=== PATIENT | female | born 1940 | race Caucasian/White ===

== ENCOUNTER → 2016-11-08 | Outpatient (CLI) | payer MEDICARE, OTHER ==
[~2016-11-08] VITALS: Ht 157.5 cm; Wt 66.5 kg
[~2016-11-08] MED LIST: ASPIRIN E.C. 8181 MG PO; BIOTIN 0.3 MG-21 TAB; CALCIUM CARBON650 M2; CALCIUM500 MG PO; CINNAMON500 MG PO; CITRACAL + D CA1 TAB PO; EPA FISH OIL1000 MG PO; ESTRACE2 MG PO; FELDENE20 MG PO; FOSAMAX 70MG TA70 MG PO; K-DUR20 MEQ PO; MULTIPLE VITAMI1 TAB PO; OCUVITE ADULT 51 SGL PO; PHENTERMINE15 MG PO; PREMARIN VAG42.5 GM VG; PRINIVIL5 MG PO; SYNTHROID 0.0.025 MG PO; SYNTHROID0.05 MG/TA PO; VITAMIN C PUR1000 MG PO; VITAMIN C500 MG PO; VITAMIN D32000 I1 PO; VITAMIN D32000 IU PO; VITAMIN E1000 U/CAP PO; WELLBUTRIN SR150 M1 PO; ZESTRIL40 MG PO
[2016-11-08 13:28] VITALS: BP 118/60; PULSE 82
[2016-11-08 13:53] VITALS: BP 118/60; PULSE 82
== END ==
LOC: LIGHT 11:19
DX: E88.81 Metabolic syndrome and other insulin resistance (principal); I10 Essential (primary) hypertension; E66.3 Overweight; Z68.26 Body mass index [BMI] 26.0-26.9, adult; E03.9 Hypothyroidism, unspecified

== ENCOUNTER → 2016-12-06 | Outpatient (CLI) | payer MEDICARE, OTHER ==
[~2016-12-06] VITALS: Ht 157.5 cm; Wt 65.3 kg
[2016-12-06 09:39] VITALS: BP 117/43; PULSE 69
[2016-12-06 09:49] VITALS: BP 117/43; PULSE 69
[2017-01-02 10:30] VITALS: BP 134/55; PULSE 80
== END ==
LOC: LIGHT 09:40
DX: E88.81 Metabolic syndrome and other insulin resistance (principal); I10 Essential (primary) hypertension; E03.8 Other specified hypothyroidism; E66.3 Overweight; Z68.26 Body mass index [BMI] 26.0-26.9, adult

== ENCOUNTER → 2017-01-17 | Outpatient (CLI) | payer MEDICARE, OTHER | LOC: MC.RAD 13:40 | DX: Z12.31 Encounter for screening mammogram for malignant neoplasm of breast (principal) ==

== ENCOUNTER → 2017-01-17 | Outpatient (CLI) | payer MEDICARE, OTHER ==
[~2017-01-17] VITALS: Ht 157.5 cm; Wt 65.1 kg
[2017-01-17 11:10] VITALS: BP 140/84; PULSE 68
== END ==
LOC: LIGHT
DX: E88.81 Metabolic syndrome and other insulin resistance (principal); I10 Essential (primary) hypertension; E66.3 Overweight; Z68.26 Body mass index [BMI] 26.0-26.9, adult; E03.8 Other specified hypothyroidism; Z90.710 Acquired absence of both cervix and uterus

== ENCOUNTER → 2017-02-21 | Outpatient (CLI) | payer MEDICARE, OTHER ==
[~2017-02-21] VITALS: Ht 157.5 cm; Wt 64.0 kg
[2017-02-21 09:56] VITALS: BP 126/80; PULSE 80
== END ==
LOC: LIGHT 09:50
DX: E88.81 Metabolic syndrome and other insulin resistance (principal); I10 Essential (primary) hypertension; E66.3 Overweight; Z68.25 Body mass index [BMI] 25.0-25.9, adult; E03.9 Hypothyroidism, unspecified

== ENCOUNTER → 2017-03-26 | Outpatient (CLI) | payer MEDICARE, OTHER ==
[~2017-03-26] VITALS: Ht 157.5 cm; Wt 65.1 kg
[2017-03-26 14:59] VITALS: BP 135/60; PULSE 81
== END ==
LOC: LIGHT 14:03
DX: E88.81 Metabolic syndrome and other insulin resistance (principal); I10 Essential (primary) hypertension; E66.3 Overweight; Z68.26 Body mass index [BMI] 26.0-26.9, adult; Z71.3 Dietary counseling and surveillance; E03.9 Hypothyroidism, unspecified

== ENCOUNTER → 2017-04-25 | Outpatient (CLI) | payer MEDICARE, OTHER ==
[~2017-04-25] VITALS: Ht 157.5 cm; Wt 65.8 kg
[2017-04-25 09:53] VITALS: BP 109/62; PULSE 79
== END ==
LOC: LIGHT 09:50
DX: E88.81 Metabolic syndrome and other insulin resistance (principal); I10 Essential (primary) hypertension; E66.3 Overweight; Z68.26 Body mass index [BMI] 26.0-26.9, adult; Z71.3 Dietary counseling and surveillance; E03.9 Hypothyroidism, unspecified

== ENCOUNTER 2017-06-11 12:27 | Day surgery (SDC) | payer MEDICARE, OTHER ==
[~2017-06-11] VITALS: Ht 157.5 cm; Wt 65.4 kg
[~2017-06-11 12:27] MED LIST changes: -BIOTIN 0.3 MG-21 TAB; -CALCIUM CARBON650 M2; -K-DUR20 MEQ PO
[2017-06-11] MEDS ORDERED: BIOTIN 0.3 MG-21 TAB (12:43)
[2017-06-11] MEDS ORDERED: K-DUR20 MEQ PO (12:44)
[2017-06-11] MEDS ORDERED: CALCIUM CARBON650 M2 (12:44)
[2017-06-11 12:56] VITALS: BP 124/70; PULSE 80; TEMP 97.5
[2017-06-11 14:25] VITALS: BP 115/64; PULSE 76; TEMP 97.5
[2017-06-11 14:40] VITALS: BP 120/72; PULSE 85
[2017-06-11 14:55] VITALS: BP 112/63; PULSE 74
[2017-06-11 15:10] VITALS: BP 117/61; PULSE 72
== END 2017-06-11 15:35 | disposition home or self-care (01) ==
LOC: SDCO 12:27
DX: Z12.11 Encounter for screening for malignant neoplasm of colon (principal); K57.30 Diverticulosis of large intestine without perforation or abscess without bleeding; I10 Essential (primary) hypertension; E03.9 Hypothyroidism, unspecified; Z90.710 Acquired absence of both cervix and uterus; Z80.0 Family history of malignant neoplasm of digestive organs
CPT/HCPCS: OP; J2250; J2405; J3010; J7030

== ENCOUNTER → 2017-06-27 | Outpatient (CLI) | payer MEDICARE, OTHER ==
[~2017-06-27] VITALS: Ht 157.5 cm; Wt 65.3 kg
[~2017-06-27] MED LIST changes: +BIOTIN 0.3 MG-21 TAB; +CALCIUM CARBON650 M2; +K-DUR20 MEQ PO
[2017-06-27 10:04] VITALS: BP 130/72; PULSE 64
== END ==
LOC: LIGHT
DX: E88.81 Metabolic syndrome and other insulin resistance (principal); I10 Essential (primary) hypertension; E66.3 Overweight; Z68.26 Body mass index [BMI] 26.0-26.9, adult; Z71.3 Dietary counseling and surveillance; E03.9 Hypothyroidism, unspecified

== ENCOUNTER → 2017-08-01 | Outpatient (CLI) | payer MEDICARE, OTHER ==
[~2017-08-01] VITALS: Ht 154.9 cm; Wt 65.5 kg
[2017-08-01 09:37] VITALS: BP 118/70; PULSE 60
== END ==
LOC: LIGHT 09:26
DX: E88.81 Metabolic syndrome and other insulin resistance (principal); I10 Essential (primary) hypertension; E66.3 Overweight; Z68.27 Body mass index [BMI] 27.0-27.9, adult; Z71.3 Dietary counseling and surveillance; E03.9 Hypothyroidism, unspecified

== ENCOUNTER → 2017-09-19 | Outpatient (CLI) | payer MEDICARE, OTHER ==
[~2017-09-19] VITALS: Ht 154.9 cm; Wt 65.1 kg
[2017-09-19 08:58] VITALS: BP 124/80; PULSE 72
== END ==
LOC: LIGHT 08:42
DX: E88.81 Metabolic syndrome and other insulin resistance (principal); I10 Essential (primary) hypertension; E66.3 Overweight; Z68.27 Body mass index [BMI] 27.0-27.9, adult; Z71.3 Dietary counseling and surveillance; E03.9 Hypothyroidism, unspecified

== ENCOUNTER → 2017-10-17 | Outpatient (CLI) | payer MEDICARE, OTHER ==
[~2017-10-17] VITALS: Ht 154.9 cm; Wt 66.2 kg
[2017-10-17 09:01] VITALS: BP 110/76; PULSE 68
== END ==
LOC: LIGHT 08:47
DX: E88.81 Metabolic syndrome and other insulin resistance (principal); I10 Essential (primary) hypertension; E66.3 Overweight; Z68.27 Body mass index [BMI] 27.0-27.9, adult; Z71.3 Dietary counseling and surveillance; E03.9 Hypothyroidism, unspecified
CPT/HCPCS: G0463

== ENCOUNTER → 2017-11-07 | Outpatient (CLI) | payer MEDICARE, OTHER ==
[~2017-11-07] VITALS: Ht 154.9 cm; Wt 66.9 kg
[2017-11-07 09:56] VITALS: BP 132/80; PULSE 72
== END ==
LOC: LIGHT 09:37
DX: E88.81 Metabolic syndrome and other insulin resistance (principal); I10 Essential (primary) hypertension; E66.3 Overweight; Z68.27 Body mass index [BMI] 27.0-27.9, adult; Z71.3 Dietary counseling and surveillance; E03.9 Hypothyroidism, unspecified
CPT/HCPCS: G0463

== ENCOUNTER → 2017-12-19 | Outpatient (CLI) | payer MEDICARE, OTHER ==
[~2017-12-19] VITALS: Ht 154.9 cm; Wt 64.4 kg
[2017-12-19 10:12] VITALS: BP 142/82; PULSE 80
== END ==
LOC: LIGHT 11-21 08:56
DX: E88.81 Metabolic syndrome and other insulin resistance (principal); I10 Essential (primary) hypertension; E66.3 Overweight; Z68.26 Body mass index [BMI] 26.0-26.9, adult; Z71.3 Dietary counseling and surveillance; E03.9 Hypothyroidism, unspecified
CPT/HCPCS: G0463

== ENCOUNTER → 2018-01-21 | Outpatient (CLI) | payer MEDICARE, OTHER | LOC: MC.RAD 11:00 | DX: Z12.31 Encounter for screening mammogram for malignant neoplasm of breast (principal) ==

== ENCOUNTER → 2018-01-23 | Outpatient (CLI) | payer MEDICARE, OTHER ==
[~2018-01-23] VITALS: Ht 154.9 cm; Wt 64.6 kg
[2018-01-23 09:56] VITALS: BP 104/69; PULSE 76
== END ==
LOC: LIGHT 09:15
DX: E88.81 Metabolic syndrome and other insulin resistance (principal); I10 Essential (primary) hypertension; E66.3 Overweight; Z68.26 Body mass index [BMI] 26.0-26.9, adult; Z71.3 Dietary counseling and surveillance; E03.9 Hypothyroidism, unspecified
CPT/HCPCS: G0463

== ENCOUNTER → 2018-02-20 | Outpatient (CLI) | payer MEDICARE, OTHER ==
[~2018-02-20] VITALS: Ht 154.9 cm; Wt 64.4 kg
[2018-02-20 09:42] VITALS: BP 116/70; PULSE 72
== END ==
LOC: LIGHT 09:18
DX: E88.81 Metabolic syndrome and other insulin resistance (principal); I10 Essential (primary) hypertension; E66.3 Overweight; Z68.26 Body mass index [BMI] 26.0-26.9, adult; Z71.3 Dietary counseling and surveillance; E03.9 Hypothyroidism, unspecified
CPT/HCPCS: G0463

== ENCOUNTER → 2018-04-24 | Outpatient (CLI) | payer MEDICARE, OTHER ==
[~2018-04-24] VITALS: Ht 154.9 cm; Wt 64.0 kg
== END ==
LOC: LIGHT 09:23
DX: E88.81 Metabolic syndrome and other insulin resistance (principal); I10 Essential (primary) hypertension; E66.3 Overweight; Z68.25 Body mass index [BMI] 25.0-25.9, adult; Z71.3 Dietary counseling and surveillance; E03.9 Hypothyroidism, unspecified
CPT/HCPCS: G0463

== ENCOUNTER → 2018-06-26 | Outpatient (CLI) | payer MEDICARE, OTHER ==
[~2018-06-26] VITALS: Ht 154.9 cm; Wt 65.3 kg
[2018-06-26 09:40] VITALS: BP 120/60; PULSE 84
== END ==
LOC: LIGHT 11:22
DX: E88.81 Metabolic syndrome and other insulin resistance (principal); I10 Essential (primary) hypertension; E03.9 Hypothyroidism, unspecified; E66.9 Obesity, unspecified; Z71.3 Dietary counseling and surveillance
CPT/HCPCS: G0463

== ENCOUNTER → 2018-07-31 | Outpatient (CLI) | payer MEDICARE, OTHER ==
[~2018-07-31] VITALS: Ht 154.9 cm; Wt 65.8 kg
[2018-07-31 08:04] VITALS: BP 132/86; PULSE 60
== END ==
LOC: LIGHT 07:59
DX: E88.81 Metabolic syndrome and other insulin resistance (principal); I10 Essential (primary) hypertension; E03.9 Hypothyroidism, unspecified; E66.3 Overweight; Z68.27 Body mass index [BMI] 27.0-27.9, adult; Z71.3 Dietary counseling and surveillance
CPT/HCPCS: G0463

== ENCOUNTER → 2018-10-16 | Outpatient (CLI) | payer MEDICARE, OTHER ==
[~2018-10-16] VITALS: Ht 154.9 cm; Wt 66.2 kg
[2018-10-16 10:32] VITALS: BP 126/60; PULSE 80
== END ==
LOC: LIGHT 10:23
DX: E88.81 Metabolic syndrome and other insulin resistance (principal); I10 Essential (primary) hypertension; E03.9 Hypothyroidism, unspecified; E66.3 Overweight; Z68.27 Body mass index [BMI] 27.0-27.9, adult; Z71.3 Dietary counseling and surveillance
CPT/HCPCS: G0463

== ENCOUNTER → 2018-11-20 | Outpatient (CLI) | payer MEDICARE, OTHER ==
[~2018-11-20] VITALS: Ht 154.9 cm; Wt 65.8 kg
[2018-11-20 11:31] VITALS: BP 126/70; PULSE 80
== END ==
LOC: LIGHT 11:26
DX: E88.81 Metabolic syndrome and other insulin resistance (principal); I10 Essential (primary) hypertension; E03.9 Hypothyroidism, unspecified; E66.3 Overweight; Z68.27 Body mass index [BMI] 27.0-27.9, adult; Z71.3 Dietary counseling and surveillance
CPT/HCPCS: G0463

== ENCOUNTER → 2018-12-25 | Outpatient (CLI) | payer MEDICARE, OTHER ==
[~2018-12-25] VITALS: Ht 154.9 cm; Wt 65.5 kg
[2018-12-25 10:41] VITALS: BP 130/76; PULSE 84
== END ==
LOC: LIGHT 10:34
DX: E88.81 Metabolic syndrome and other insulin resistance (principal); I10 Essential (primary) hypertension; E03.9 Hypothyroidism, unspecified; E66.3 Overweight; Z68.27 Body mass index [BMI] 27.0-27.9, adult; Z71.3 Dietary counseling and surveillance
CPT/HCPCS: G0463

== ENCOUNTER → 2019-04-09 | Outpatient (CLI) | payer MEDICARE, OTHER ==
[~2019-04-09] VITALS: Ht 154.9 cm; Wt 66.2 kg
[2019-04-09 09:33] VITALS: BP 120/76; PULSE 80
== END ==
LOC: LIGHT 01-22 14:10
DX: E88.81 Metabolic syndrome and other insulin resistance (principal); I10 Essential (primary) hypertension; E03.9 Hypothyroidism, unspecified; E66.9 Obesity, unspecified; Z68.27 Body mass index [BMI] 27.0-27.9, adult; Z71.3 Dietary counseling and surveillance
CPT/HCPCS: G0463

== ENCOUNTER → 2019-05-28 | Outpatient (CLI) | payer MEDICARE, OTHER ==
[~2019-05-28] VITALS: Ht 154.9 cm; Wt 66.5 kg
[2019-05-28 09:33] VITALS: BP 124/74; PULSE 84
== END ==
LOC: LIGHT 09:21
DX: E88.81 Metabolic syndrome and other insulin resistance (principal); I10 Essential (primary) hypertension; E03.9 Hypothyroidism, unspecified; E66.3 Overweight; Z68.27 Body mass index [BMI] 27.0-27.9, adult; Z71.3 Dietary counseling and surveillance
CPT/HCPCS: G0463

== ENCOUNTER → 2019-06-29 | Outpatient (CLI) | payer MEDICARE, OTHER | LOC: MC.RAD 05-22 11:30 | DX: Z12.31 Encounter for screening mammogram for malignant neoplasm of breast (principal) ==

== ENCOUNTER → 2019-07-02 | Outpatient (CLI) | payer MEDICARE, OTHER ==
[~2019-07-02] VITALS: Ht 154.9 cm; Wt 66.5 kg
[2019-07-02 10:37] VITALS: BP 140/80; PULSE 110
== END ==
LOC: LIGHT 09:48
DX: E88.81 Metabolic syndrome and other insulin resistance (principal); I10 Essential (primary) hypertension; E03.9 Hypothyroidism, unspecified; E66.3 Overweight; Z68.27 Body mass index [BMI] 27.0-27.9, adult; Z71.3 Dietary counseling and surveillance
CPT/HCPCS: G0463

== ENCOUNTER → 2019-08-13 | Outpatient (CLI) | payer MEDICARE, OTHER ==
[~2019-08-13] VITALS: Ht 154.9 cm; Wt 66.5 kg
[2019-08-13 09:16] VITALS: BP 130/80; PULSE 107
== END ==
LOC: LIGHT 09:05
DX: E88.81 Metabolic syndrome and other insulin resistance (principal); I10 Essential (primary) hypertension; E03.9 Hypothyroidism, unspecified; E66.3 Overweight; Z68.27 Body mass index [BMI] 27.0-27.9, adult; Z71.3 Dietary counseling and surveillance
CPT/HCPCS: G0463

== ENCOUNTER → 2019-12-03 | Outpatient (CLI) | payer MEDICARE, OTHER ==
[~2019-12-03] VITALS: Ht 154.9 cm; Wt 65.5 kg
[~2019-12-03] MED LIST changes: +MOBIC 7.5MG7.5 MG PO
[2019-12-03 09:48] VITALS: BP 144/84; PULSE 94
== END ==
LOC: LIGHT 09:38
DX: Z68.27 Body mass index [BMI] 27.0-27.9, adult (principal); E88.81 Metabolic syndrome and other insulin resistance; I10 Essential (primary) hypertension
CPT/HCPCS: G0463

== ENCOUNTER → 2020-04-07 | Outpatient (CLI) | payer MEDICARE, OTHER ==
[~2020-04-07] VITALS: Ht 154.9 cm; Wt 64.9 kg
[2020-04-07 14:16] VITALS: BP 140/76; PULSE 89
== END ==
LOC: LIGHT 01-07 13:21
DX: E66.8 Other obesity (principal); Z68.27 Body mass index [BMI] 27.0-27.9, adult; I10 Essential (primary) hypertension; E88.81 Metabolic syndrome and other insulin resistance; E03.9 Hypothyroidism, unspecified
CPT/HCPCS: G0463

== ENCOUNTER → 2020-05-19 | Outpatient (CLI) | payer MEDICARE, OTHER ==
[~2020-05-19] VITALS: Ht 154.9 cm; Wt 64.9 kg
[2020-05-19 10:46] VITALS: BP 128/78; PULSE 80
== END ==
LOC: LIGHT 10:37
DX: E66.8 Other obesity (principal); Z68.27 Body mass index [BMI] 27.0-27.9, adult; I10 Essential (primary) hypertension; E88.81 Metabolic syndrome and other insulin resistance
CPT/HCPCS: G0463

== ENCOUNTER → 2020-07-13 | Outpatient (CLI) | payer MEDICARE, OTHER | LOC: MC.RAD 09:30 | DX: Z12.31 Encounter for screening mammogram for malignant neoplasm of breast (principal) ==

== ENCOUNTER → 2020-07-14 | Outpatient (CLI) | payer MEDICARE, OTHER ==
[~2020-07-14] VITALS: Ht 154.9 cm; Wt 65.1 kg
[2020-07-14 09:44] VITALS: BP 134/88; PULSE 104
== END ==
LOC: LIGHT 09:39
DX: E66.8 Other obesity (principal); Z68.27 Body mass index [BMI] 27.0-27.9, adult; E88.81 Metabolic syndrome and other insulin resistance; I10 Essential (primary) hypertension
CPT/HCPCS: G0463

== ENCOUNTER → 2020-08-25 | Outpatient (CLI) | payer MEDICARE, OTHER ==
[~2020-08-25] VITALS: Ht 154.9 cm; Wt 64.9 kg
[2020-08-25 09:18] VITALS: BP 132/80; PULSE 110
== END ==
LOC: LIGHT 09:00
DX: E66.8 Other obesity (principal); Z68.27 Body mass index [BMI] 27.0-27.9, adult; E88.81 Metabolic syndrome and other insulin resistance; I10 Essential (primary) hypertension; E03.9 Hypothyroidism, unspecified
CPT/HCPCS: G0463

== ENCOUNTER → 2021-09-20 | Outpatient (CLI) | payer MEDICARE, OTHER | LOC: MC.RAD 09-12 17:30 | DX: Z12.31 Encounter for screening mammogram for malignant neoplasm of breast (principal) ==

== ENCOUNTER → 2022-02-05 | Outpatient (CLI) | payer MEDICARE, OTHER | LOC: COL.RAD 07:39 | DX: M79.671 Pain in right foot (principal); M79.672 Pain in left foot | CPT/HCPCS: J3301; Q9967 ==

== ENCOUNTER → 2022-11-13 | Outpatient (CLI) | payer MEDICARE, OTHER | LOC: MC.RAD 10:00 | DX: Z12.31 Encounter for screening mammogram for malignant neoplasm of breast (principal) ==

== ENCOUNTER → 2023-12-31 | Outpatient (CLI) | payer MEDICARE | LOC: MC.RAD 10:09 | DX: Z12.31 Encounter for screening mammogram for malignant neoplasm of breast (principal) ==